=== PATIENT | female | born 1990 | race Caucasian/White ===

== ENCOUNTER → 2023-08-24 13:17 | Outpatient (REF) | payer OTHER, SELFPAY | LOC: PNTC 13:17 | PROVIDERS: ATTENDING PHYSICIAN Obstetrics & Gynecology | DX: Z36.0 Encounter for antenatal screening for chromosomal anomalies (principal) | CPT/HCPCS: 36415; 76801; 76813 ==

== ENCOUNTER 2024-02-07 01:04 | Observation (INO) | payer OTHER, SELFPAY ==
[2024-02-07 01:21] VITALS: BMI 33.0
[2024-02-07 01:22] VITALS: BP 130/75
== END 2024-02-07 02:00 | disposition home or self-care (01) ==
LOC: LDRP 01:04
PROVIDERS: ADMITTING PHYSICIAN Obstetrics & Gynecology; FAMILY PHYSICIAN Internal Medicine
DX: O47.1 False labor at or after 37 completed weeks of gestation (principal); Z3A.37 37 weeks gestation of pregnancy
CPT/HCPCS: 59025; G0378

== ENCOUNTER 2024-02-12 00:22 | Inpatient (IN) | payer OTHER, SELFPAY ==
[2024-02-12 00:31] VITALS: BMI 33.0
[2024-02-12 00:46] VITALS: BP 120/67
[2024-02-12 01:30] LABS: % Basophils 0.4 % (0-2); % Eosinophils 0.4 % (0-6); % Immature Granulocytes 0.9 % (0-0.5); % Lymphocytes 20.6 % (20.5-51.1); % Monocytes 8.3 % (1.7-9.3); % Neutrophils 69.4 % (42.2-75.2); Absolute Immature Granulocytes 0.1 10^3/uL (0-0.05); Absolute Lymphocytes 2.4 10^3/uL (1.2-3.4); Absolute Monocytes 0.9 10^3/uL (0.1-0.6); Absolute Neutrophils 7.9 10^3/uL (1.4-6.5); Hematocrit 37.2 % (37.0-47.0); Hemoglobin 13.2 g/dL (12.0-16.0); Mean Corp Hgb Conc. 35.5 g/dL (33.0-37.0); Mean Corpuscular Hgb 30.9 pg (27.0-31.0); Mean Corpuscular Volume 87.1 fL (81.0-99.0); Mean Platelet Volume 11.7 fL (7.4-10.4); Nucleated Red Blood Cells % 0 %; Platelet Count 244 10^3/uL (130-400); Red Blood Cell Count 4.27 10^6/uL (4.20-5.40); Red Cell Dist. Width 12.7 % (11.5-14.5); White Blood Cell Count 11.4 10^3/uL (4.8-10.8)
[2024-02-12] MEDS: FENTANYL/BUPIVACAINE 100 EPIDURAL (14:22)
[2024-02-12] MEDS: SUBLIMAZE 100 MCG EPIDURAL (14:22)
[2024-02-12] MEDS: LR 1000 IV (14:39)
[2024-02-12] MEDS: PITOCIN 30 UNITS/NSS 500 ML IV (15:24)
[2024-02-13 05:50] LABS: Hemoglobin 12.5 g/dL (12.0-16.0)
[2024-02-13] MEDS: PRENATAL PLUS 1 TABLET PO (08:20)
[2024-02-13] MEDS: MOTRIN 600 MG PO ×2 (08:36→16:51)
[2024-02-13] MEDS: SENOKOT-S 1 TABLET PO (08:39)
[2024-02-14] MEDS: MOTRIN 600 MG PO ×2 (03:37→09:30)
[2024-02-14] MEDS: PRENATAL PLUS 1 TABLET PO (08:45)
[2024-02-14] MEDS: SENOKOT-S 1 TABLET PO (08:45)
[2024-02-16 15:22] LABS: Syphilis/T. pallidum Ab Reflex Negative (Negative)
== END 2024-02-14 12:17 | disposition home or self-care (01) | DRG 807 ==
LOC: LDRP 00:22
PROVIDERS: Obstetrics & Gynecology; ADMITTING PHYSICIAN Student in an Organized Health Care Education/Training Program
PROC: 10E0XZZ Delivery of Products of Conception, External Approach (ICD-10-PCS; 2024-02-12)
PROC: 0HQ9XZZ Repair Perineum Skin, External Approach (ICD-10-PCS; 2024-02-12)
PROC: 4A1HXCZ Monitoring of Products of Conception, Cardiac Rate, External Approach (ICD-10-PCS; 2024-02-12)
DX: O70.0 First degree perineal laceration during delivery (principal); Z37.0 Single live birth; O69.81X0 Labor and delivery complicated by cord around neck, without compression, not applicable or unspecified; Z3A.37 37 weeks gestation of pregnancy
CPT/HCPCS: 85014; 85018; 85025; 86780; 86850; 86900; 86901